=== PATIENT | female | born 1935 | race Caucasian/White ===

== ENCOUNTER 2023-09-19 13:20 | Inpatient (IN) | payer MEDICARE, MEDICAID ==
[~2023-09-19] VITALS: Ht 167.6 cm; Wt 70.3 kg
[2023-09-19 14:21] LABS: AMMONIA 18 uMol/L (<32)
[2023-09-19 14:22] LABS: ACETAMINOPHEN < 2 ug/mL (10-30); ALANINE AMINOTRANSFERASE 11 IU/L (10-49); ASPARTATE AMINOTRANSFERASE 18 IU/L (<34); CALCIUM 8.9 mg/dL (8.7-10.4); CARBON DIOXIDE 29 mEq/L (21-32); CHLORIDE 106 mEq/L (98-107); CREATINE KINASE 35 IU/L (34-145); CREATININE 0.7 mg/dL (0.6-1.0); GLUCOSE 173 mg/dL (70-105); POTASSIUM 4.1 mEq/L (3.5-5.1); PROTEIN TOTAL 6.9 g/dL (6.0-8.3); SODIUM 140 mEq/L (136-145); TROPONIN I HIGH SENSITIVITY 7 ng/L (3.0-34); UREA NITROGEN BLOOD 14 mg/dL (9-23)
[2023-09-19 14:23] LABS: BASOPHILS % 0.7 % (0.0-2.0); DIFFERENTIAL COMMENT 0; EOSINOPHILS % 0.3 % (0.0-5.0); HEMATOCRIT. 27.8 % (36.0-48.0); HEMOGLOBIN. 8.1 g/dL (12.0-16.0); LYMPHOCYTES % 8.8 % (20.0-50.0); MEAN CORPUSCULAR HEMOGLOBIN 21.6 pg (28.0-32.0); MEAN CORPUSCULAR HGB CONC 29.3 g/dL (31.0-37.0); MEAN CORPUSCULAR VOLUME 73.9 fL (81.0-99.0); MEAN PLATELET VOLUME 7.9 fl (7.4-10.4); MONOCYTES % 11.5 % (2.0-8.0); NEUTROPHILS % 78.7 % (40.0-76.0); PLATELET 321 x1000/uL (130-400); RED BLOOD CELL COUNT 3.76 mill/uL (4.2-5.4); RED CELL DISTRIBUTION WIDTH 18.7 % (11.6-14.6); WHITE BLOOD COUNT 7.3 x1000/uL (4.5-11.0)
[2023-09-19 14:30] LABS: ETHANOL BLOOD < 10 mg/dL (<10)
[2023-09-19 14:53] LABS: BG BASE EXCESS 4.5 mmol/L (-2.0-2.0); BG CARBOXYHEMOGLOBIN 0.4 % (0.5-1.5); BG DEOXYHEMOGLOBIN 1.1 % (0.0-5.0); BG FRACTION INSPIRED OXYGEN 40; BG HCO3 ACT 28.6 mmol/L (22.0-26.0); BG METHEMOGLOBIN 0.3 % (0.0-1.5); BG OXYGEN SATURATION 98.9 % (92.0-98.5); BG OXYHEMOGLOBIN 98.2 % (94.0-97.0); BG PCO2 41.1 mmHg (35.0-45.0); BG PH 7.461 (7.350-7.450); BG PO2 144.9 mmHg (75.0-100.0); BG SAMPLE SITE RIGHT RADIAL; BG TOTAL HEMOGLOBIN 9.1 g/dL (12.0-18.0); BG VENT MODE NASAL CANNULA
[2023-09-19] MEDS ORDERED: CEFTRIAXONE 1GM PREMIX 50 ML IV NR (16:15)
[2023-09-19] MEDS ORDERED: AZITHROMYCIN 500MG/250ML 250 ML IV NR (16:30)
[2023-09-19] MEDS ORDERED: ONDANSETRON HCL 4MG/2ML INJ IV PRN (19:45)
[2023-09-19] MEDS ORDERED: DOCUSATE SODIUM 100MG CAPSULE PO PRN (19:45)
[2023-09-19] MEDS ORDERED: GUAIFENESIN 200MG/10ML SUGAR FREE UDC PO PRN (19:45)
[2023-09-19] MEDS ORDERED: ACETAMINOPHEN 325MG TABLET PO PRN ×2 (19:45)
[2023-09-19] MEDS ORDERED: CLONIDINE 0.1MG TABLET PO PRN (19:45)
[2023-09-19] MEDS ORDERED: MAGNESIUM/ALUMINUM HYDROXIDE/SIMETHICONE 30ML UDC PO PRN (19:45)
[2023-09-19] MEDS ORDERED: IPRATROPIUM/ALBUTEROL 0.5-3(2.5)MG/3ML NEB HHN PRN (19:45)
[2023-09-19] MEDS ORDERED: DEXTROSE 50% WATER 50ML SYRINGE IV PRN (20:15)
[2023-09-19 20:22] LABS: IRON 28 ug/dL (50-170); TOTAL IRON BINDING CAPACITY 270 ug/dl (250-425)
[2023-09-19] MEDS: INSULIN LISPRO 100 UNITS/ML SUBCUT SCH (21:00)
[2023-09-19] MEDS: BLOOD SUGAR DIAGNOSTIC STRIP TEST SCH (21:14)
[2023-09-19 21:41] LABS: VITAMIN B12 SERUM > 2000 pg/mL (211-911)
[2023-09-19 22:08] LABS: AMMONIA < 17 uMol/L (<32); CREATINE KINASE 31 IU/L (34-145); TROPONIN I HIGH SENSITIVITY 9 ng/L (3.0-34)
[2023-09-19 22:09] LABS: CREATINE KINASE MB FRACTION < 0.0 ng/mL (0.5-3.6)
[2023-09-19] MEDS ORDERED: IOHEXOL-350 100 ML BOTTLE ONE (23:11)
[2023-09-20] VITALS (13 sets, daily range): BP systolic 125–147; BP diastolic 57–101; PULSE 68–90; RESP 17–26; TEMP 97.3–98.6
[2023-09-20 06:39] LABS: BASOPHILS % 1.1 % (0.0-2.0); DIFFERENTIAL COMMENT 0; EOSINOPHILS % 0.8 % (0.0-5.0); HEMATOCRIT. 30.2 % (36.0-48.0); HEMOGLOBIN. 8.8 g/dL (12.0-16.0); LYMPHOCYTES % 19.8 % (20.0-50.0); MEAN CORPUSCULAR HEMOGLOBIN 21.6 pg (28.0-32.0); MEAN CORPUSCULAR HGB CONC 29.1 g/dL (31.0-37.0); MEAN CORPUSCULAR VOLUME 74.2 fL (81.0-99.0); MEAN PLATELET VOLUME 7.9 fl (7.4-10.4); MONOCYTES % 12.4 % (2.0-8.0); NEUTROPHILS % 65.9 % (40.0-76.0); PLATELET 305 x1000/uL (130-400); RED BLOOD CELL COUNT 4.07 mill/uL (4.2-5.4); RED CELL DISTRIBUTION WIDTH 19.4 % (11.6-14.6); WHITE BLOOD COUNT 6.5 x1000/uL (4.5-11.0)
[2023-09-20 07:27] LABS: CREATINE KINASE 33 IU/L (34-145); CREATINE KINASE MB FRACTION < 0.5 ng/mL (0.5-3.6); TROPONIN I HIGH SENSITIVITY 10 ng/L (3.0-34)
[2023-09-20 07:29] LABS: ALANINE AMINOTRANSFERASE 10 IU/L (10-49); ASPARTATE AMINOTRANSFERASE 20 IU/L (<34); BILIRUBIN TOTAL 0.9 mg/dL (0.1-1.0); CALCIUM 9.2 mg/dL (8.7-10.4); CARBON DIOXIDE 30 mEq/L (21-32); CHLORIDE 103 mEq/L (98-107); CHOLESTEROL 95 mg/dL (<200); CREATININE 0.6 mg/dL (0.6-1.0); GLUCOSE 87 mg/dL (70-105); HDL CHOLESTEROL 36 mg/dL (>65); LDL CHOLESTEROL 40 mg/dL (5-100); POTASSIUM 3.9 mEq/L (3.5-5.1); PROTEIN TOTAL 6.9 g/dL (6.0-8.3); SODIUM 143 mEq/L (136-145); T4 FREE 1.13 ng/dL (0.89-1.76); TRIGLYCERIDE 73 mg/dL (0-150); UREA NITROGEN BLOOD 10 mg/dL (9-23)
[2023-09-20] MEDS: BLOOD SUGAR DIAGNOSTIC STRIP TEST SCH ×4 (07:30→20:27)
[2023-09-20] MEDS: INSULIN LISPRO 100 UNITS/ML SUBCUT SCH ×4 (08:00→20:26)
[2023-09-20] MEDS: FAMOTIDINE 20MG/2ML VIAL IV SCH (08:26)
[2023-09-20] MEDS: ASPIRIN 81MG TABLET PO SCH (12:30)
[2023-09-20] MEDS: CLOPIDOGREL 75MG TABLET PO SCH (12:30)
[2023-09-20] MEDS ORDERED: CEFTRIAXONE 1GM PREMIX 50 ML IV SCH (16:00)
[2023-09-20] MEDS ORDERED: AZITHROMYCIN 500MG/250ML 250 ML IV SCH (17:00)
[2023-09-20] MEDS: AZITHROMYCIN 500MG/250ML 250 ML IV SCH (17:00)
[2023-09-20] MEDS: ATORVASTATIN CALCIUM 40MG TABLET PO SCH (20:38)
[2023-09-21] VITALS (12 sets, daily range): BP systolic 132–160; BP diastolic 73–93; PULSE 81–112; RESP 18–26; TEMP 97.3–98.4
[2023-09-21 06:20] LABS: HEMATOCRIT 29.4 % (36.0-48.0); HEMOGLOBIN 8.7 g/dL (12.0-16.0); MEAN CORPUSCULAR HEMOGLOBIN 21.9 pg (28.0-32.0); MEAN CORPUSCULAR HGB CONC 29.6 g/dL (31.0-37.0); PLATELET 290 x1000/uL (130-400); RED BLOOD CELL COUNT 3.98 mill/uL (4.2-5.4); RED CELL DISTRIBUTION WIDTH 20.2 % (11.6-14.6); WHITE BLOOD COUNT 5.5 x1000/uL (4.5-11.0)
[2023-09-21 06:31] LABS: CALCIUM 9.1 mg/dL (8.7-10.4); CARBON DIOXIDE 32 mEq/L (21-32); CHLORIDE 101 mEq/L (98-107); CREATININE 0.6 mg/dL (0.6-1.0); GLUCOSE 94 mg/dL (70-105); PHOSPHORUS 4.3 mg/dL (2.5-4.9); POTASSIUM 3.6 mEq/L (3.5-5.1); SODIUM 139 mEq/L (136-145); UREA NITROGEN BLOOD 11 mg/dL (9-23)
[2023-09-21] MEDS: BLOOD SUGAR DIAGNOSTIC STRIP TEST SCH ×4 (07:30→21:00)
[2023-09-21] MEDS: INSULIN LISPRO 100 UNITS/ML SUBCUT SCH ×4 (08:00→21:49)
[2023-09-21] MEDS: CLOPIDOGREL 75MG TABLET PO SCH (08:32)
[2023-09-21] MEDS: FAMOTIDINE 20MG/2ML VIAL IV SCH (08:32)
[2023-09-21] MEDS: ASPIRIN 81MG TABLET PO SCH (08:32)
[2023-09-21] MEDS ORDERED: LORAZEPAM 2MG/ML INJ IV NR (13:00)
[2023-09-21] MEDS: CEFTRIAXONE 1GM PREMIX 50 ML IV SCH (15:20)
[2023-09-21] MEDS: AZITHROMYCIN 500MG/250ML 250 ML IV SCH (17:41)
[2023-09-21] MEDS ORDERED: AZIT500T8 MT (18:12)
[2023-09-21] MEDS ORDERED: ASPI-1160 PO (18:12)
[2023-09-21] MEDS ORDERED: CEFT2FRO5 IV (18:12)
[2023-09-21] MEDS ORDERED: CLOP-31 PO (18:12)
[2023-09-21] MEDS ORDERED: LIP40 PO (18:12)
[2023-09-21] MEDS: ATORVASTATIN CALCIUM 40MG TABLET PO SCH (21:24)
[2023-09-22] VITALS (10 sets, daily range): BP systolic 101–166; BP diastolic 58–143; PULSE 93–114; RESP 16–28; TEMP 98.6–98.7
[2023-09-22] MEDS: BLOOD SUGAR DIAGNOSTIC STRIP TEST SCH ×4 (07:30→21:00)
[2023-09-22] MEDS: INSULIN LISPRO 100 UNITS/ML SUBCUT SCH ×4 (08:00→21:00)
[2023-09-22 08:17] LABS: CALCIUM 8.8 mg/dL (8.7-10.4); CARBON DIOXIDE 30 mEq/L (21-32); CHLORIDE 106 mEq/L (98-107); CREATININE 0.6 mg/dL (0.6-1.0); GLUCOSE 114 mg/dL (70-105); POTASSIUM 3.7 mEq/L (3.5-5.1); SODIUM 142 mEq/L (136-145); UREA NITROGEN BLOOD 8 mg/dL (9-23)
[2023-09-22 08:30] LABS: HEMATOCRIT 30.3 % (36.0-48.0); HEMOGLOBIN 8.9 g/dL (12.0-16.0); MEAN CORPUSCULAR HEMOGLOBIN 22.1 pg (28.0-32.0); MEAN CORPUSCULAR HGB CONC 29.4 g/dL (31.0-37.0); PLATELET 280 x1000/uL (130-400); RED BLOOD CELL COUNT 4.04 mill/uL (4.2-5.4); RED CELL DISTRIBUTION WIDTH 23.3 % (11.6-14.6); WHITE BLOOD COUNT 6.4 x1000/uL (4.5-11.0)
[2023-09-22] MEDS: ASPIRIN 81MG TABLET PO SCH (09:28)
[2023-09-22] MEDS: CLOPIDOGREL 75MG TABLET PO SCH (09:28)
[2023-09-22] MEDS: FAMOTIDINE 20MG/2ML VIAL IV SCH (09:57)
[2023-09-22] MEDS: CEFTRIAXONE 1GM PREMIX 50 ML IV SCH (16:01)
[2023-09-22] MEDS: AZITHROMYCIN 500MG/250ML 250 ML IV SCH (16:56)
[2023-09-22] MEDS: ATORVASTATIN CALCIUM 40MG TABLET PO SCH (20:53)
[2023-09-22] MEDS: DILTIAZEM HCL 30MG TABLET PO SCH (22:58)
[2023-09-23] VITALS (12 sets, daily range): BP systolic 116–164; BP diastolic 64–96; PULSE 66–112; RESP 20–27; TEMP 97.1–98.7
[2023-09-23] MEDS: DILTIAZEM HCL 30MG TABLET PO SCH (06:05)
[2023-09-23] MEDS: BLOOD SUGAR DIAGNOSTIC STRIP TEST SCH ×4 (07:30→21:00)
[2023-09-23 07:31] LABS: HEMATOCRIT 29.4 % (36.0-48.0); HEMOGLOBIN 8.8 g/dL (12.0-16.0); MEAN CORPUSCULAR HEMOGLOBIN 22.5 pg (28.0-32.0); MEAN CORPUSCULAR HGB CONC 29.9 g/dL (31.0-37.0); MEAN CORPUSCULAR VOLUME 75.3 fL (81.0-99.0); PLATELET 277 x1000/uL (130-400); RED CELL DISTRIBUTION WIDTH 25.1 % (11.6-14.6)
[2023-09-23 07:57] LABS: CARBON DIOXIDE 33 mEq/L (21-32); CHLORIDE 103 mEq/L (98-107); CREATININE 0.6 mg/dL (0.6-1.0); GLUCOSE 128 mg/dL (70-105); POTASSIUM 3.9 mEq/L (3.5-5.1); SODIUM 142 mEq/L (136-145); UREA NITROGEN BLOOD 7 mg/dL (9-23)
[2023-09-23] MEDS: INSULIN LISPRO 100 UNITS/ML SUBCUT SCH ×4 (08:00→21:00)
[2023-09-23] MEDS: ASPIRIN 81MG TABLET PO SCH (08:48)
[2023-09-23] MEDS: CLOPIDOGREL 75MG TABLET PO SCH (08:48)
[2023-09-23] MEDS: FAMOTIDINE 20MG/2ML VIAL IV SCH (08:48)
[2023-09-23] MEDS: ENOXAPARIN 40MG/0.4ML SYR SUBCUT SCH (11:07)
[2023-09-23 13:06] LABS: FOLATE HEMATOCRIT 32.8 % (34.0-46.6)
[2023-09-23] MEDS: FERROUS SULFATE 325MG TABLET PO SCH ×2 (14:06→18:07)
[2023-09-23] MEDS: DILTIAZEM HCL 60MG TABLET PO SCH ×2 (14:06→22:05)
[2023-09-23] MEDS: CEFTRIAXONE 1GM PREMIX 50 ML IV SCH (16:12)
[2023-09-23] MEDS: AZITHROMYCIN 500MG/250ML 250 ML IV SCH (17:25)
[2023-09-23] MEDS: ATORVASTATIN CALCIUM 40MG TABLET PO SCH (22:04)
[2023-09-24] VITALS (15 sets, daily range): BP systolic 117–151; BP diastolic 59–99; PULSE 71–99; RESP 15–26; TEMP 97.1–97.5
[2023-09-24 05:53] LABS: HEMATOCRIT 32.7 % (36.0-48.0); HEMOGLOBIN 9.4 g/dL (12.0-16.0); MEAN CORPUSCULAR HEMOGLOBIN 22.2 pg (28.0-32.0); MEAN CORPUSCULAR HGB CONC 28.7 g/dL (31.0-37.0); MEAN CORPUSCULAR VOLUME 77.2 fL (81.0-99.0); PLATELET 279 x1000/uL (130-400); RED BLOOD CELL COUNT 4.24 mill/uL (4.2-5.4); RED CELL DISTRIBUTION WIDTH 24.8 % (11.6-14.6); WHITE BLOOD COUNT 5.5 x1000/uL (4.5-11.0)
[2023-09-24] MEDS: DILTIAZEM HCL 60MG TABLET PO SCH ×3 (06:01→21:53)
[2023-09-24 06:54] LABS: CALCIUM 9.2 mg/dL (8.7-10.4); CARBON DIOXIDE 32 mEq/L (21-32); CHLORIDE 104 mEq/L (98-107); CREATININE 0.6 mg/dL (0.6-1.0); GLUCOSE 106 mg/dL (70-105); POTASSIUM 3.9 mEq/L (3.5-5.1); SODIUM 143 mEq/L (136-145); UREA NITROGEN BLOOD 6 mg/dL (9-23)
[2023-09-24] MEDS: BLOOD SUGAR DIAGNOSTIC STRIP TEST SCH ×4 (07:30→21:00)
[2023-09-24] MEDS: INSULIN LISPRO 100 UNITS/ML SUBCUT SCH ×4 (08:00→21:00)
[2023-09-24] MEDS: ENOXAPARIN 40MG/0.4ML SYR SUBCUT SCH (09:38)
[2023-09-24] MEDS: ASPIRIN 81MG TABLET PO SCH (09:38)
[2023-09-24] MEDS: CLOPIDOGREL 75MG TABLET PO SCH (09:39)
[2023-09-24] MEDS: FAMOTIDINE 20MG/2ML VIAL IV SCH (09:39)
[2023-09-24] MEDS: FERROUS SULFATE 325MG TABLET PO SCH ×3 (09:39→17:41)
[2023-09-24] MEDS: AZITHROMYCIN 500MG/250ML 250 ML IV SCH (17:42)
[2023-09-24] MEDS: CEFTRIAXONE 1GM PREMIX 50 ML IV SCH (17:42)
[2023-09-24] MEDS: ATORVASTATIN CALCIUM 40MG TABLET PO SCH (21:52)
[2023-09-25] VITALS (11 sets, daily range): BP systolic 105–136; BP diastolic 42–83; PULSE 67–99; RESP 14–27; TEMP 97–98.5; O2SAT 99
[2023-09-25] MEDS: DILTIAZEM HCL 60MG TABLET PO SCH ×3 (04:55→22:00)
[2023-09-25] MEDS: INSULIN LISPRO 100 UNITS/ML SUBCUT SCH ×4 (08:00→21:00)
[2023-09-25] MEDS: BLOOD SUGAR DIAGNOSTIC STRIP TEST SCH ×4 (08:15→21:00)
[2023-09-25] MEDS: FAMOTIDINE 20MG/2ML VIAL IV SCH (08:17)
[2023-09-25] MEDS: FERROUS SULFATE 325MG TABLET PO SCH ×3 (08:17→17:16)
[2023-09-25] MEDS: CLOPIDOGREL 75MG TABLET PO SCH (08:17)
[2023-09-25] MEDS: ASPIRIN 81MG TABLET PO SCH (08:17)
[2023-09-25 09:40] LABS: HEMATOCRIT 30.5 % (36.0-48.0); MEAN CORPUSCULAR HGB CONC 29.4 g/dL (31.0-37.0); MEAN CORPUSCULAR VOLUME 75.1 fL (81.0-99.0); PLATELET 276 x1000/uL (130-400); RED BLOOD CELL COUNT 4.06 mill/uL (4.2-5.4); RED CELL DISTRIBUTION WIDTH 24.9 % (11.6-14.6); WHITE BLOOD COUNT 5.2 x1000/uL (4.5-11.0)
[2023-09-25 10:10] LABS: CARBON DIOXIDE 34 mEq/L (21-32); CHLORIDE 104 mEq/L (98-107); CREATININE 0.6 mg/dL (0.6-1.0); GLUCOSE 131 mg/dL (70-105); POTASSIUM 3.7 mEq/L (3.5-5.1); SODIUM 142 mEq/L (136-145); UREA NITROGEN BLOOD 8 mg/dL (9-23)
[2023-09-25] MEDS: RIVAROXABAN 10 MG TABLET PO SCH (17:15)
[2023-09-25] MEDS: ATORVASTATIN CALCIUM 40MG TABLET PO SCH (21:00)
[2023-09-26] VITALS (17 sets, daily range): BP systolic 103–154; BP diastolic 49–127; PULSE 66–81; RESP 12–26; TEMP 97–97.9
[2023-09-26] MEDS: DILTIAZEM HCL 60MG TABLET PO SCH ×3 (06:00→21:04)
[2023-09-26] MEDS: INSULIN LISPRO 100 UNITS/ML SUBCUT SCH ×5 (07:30→21:00)
[2023-09-26] MEDS: BLOOD SUGAR DIAGNOSTIC STRIP TEST SCH ×4 (07:30→21:35)
[2023-09-26] MEDS: ASPIRIN 81MG TABLET PO SCH (08:14)
[2023-09-26] MEDS: FERROUS SULFATE 325MG TABLET PO SCH ×3 (08:14→17:46)
[2023-09-26] MEDS: FAMOTIDINE 20MG/2ML VIAL IV SCH (08:14)
[2023-09-26 08:35] LABS: HEMATOCRIT 29.7 % (36.0-48.0); HEMOGLOBIN 8.8 g/dL (12.0-16.0); MEAN CORPUSCULAR HEMOGLOBIN 22.3 pg (28.0-32.0); MEAN CORPUSCULAR HGB CONC 29.5 g/dL (31.0-37.0); MEAN CORPUSCULAR VOLUME 75.6 fL (81.0-99.0); PLATELET 284 x1000/uL (130-400); RED BLOOD CELL COUNT 3.93 mill/uL (4.2-5.4); RED CELL DISTRIBUTION WIDTH 25.7 % (11.6-14.6)
[2023-09-26 09:03] LABS: CALCIUM 8.8 mg/dL (8.7-10.4); CARBON DIOXIDE 33 mEq/L (21-32); CHLORIDE 106 mEq/L (98-107); CREATININE 0.6 mg/dL (0.6-1.0); GLUCOSE 110 mg/dL (70-105); POTASSIUM 3.6 mEq/L (3.5-5.1); SODIUM 143 mEq/L (136-145); UREA NITROGEN BLOOD 9 mg/dL (9-23)
[2023-09-26 13:11] LABS: FOLATE RBC 1601 ng/mL (>498)
[2023-09-26] MEDS: RIVAROXABAN 10 MG TABLET PO SCH (17:46)
[2023-09-26] MEDS: ATORVASTATIN CALCIUM 40MG TABLET PO SCH (21:03)
[2023-09-27] VITALS: BP 148/60; PULSE 64; RESP 20; TEMP 97.9
[2023-09-27 04:00] VITALS: BP 155/57; PULSE 72; RESP 18; TEMP 97.8
[2023-09-27] MEDS: DILTIAZEM HCL 60MG TABLET PO SCH ×3 (05:41→21:36)
[2023-09-27 06:26] LABS: HEMATOCRIT 29.5 % (36.0-48.0); HEMOGLOBIN 8.6 g/dL (12.0-16.0); MEAN CORPUSCULAR HEMOGLOBIN 22.7 pg (28.0-32.0); MEAN CORPUSCULAR HGB CONC 29.3 g/dL (31.0-37.0); MEAN CORPUSCULAR VOLUME 77.6 fL (81.0-99.0); PLATELET 301 x1000/uL (130-400); RED CELL DISTRIBUTION WIDTH 26.5 % (11.6-14.6); WHITE BLOOD COUNT 5.1 x1000/uL (4.5-11.0)
[2023-09-27 06:27] LABS: CALCIUM 8.6 mg/dL (8.7-10.4); CARBON DIOXIDE 33 mEq/L (21-32); CHLORIDE 108 mEq/L (98-107); CREATININE 0.6 mg/dL (0.6-1.0); GLUCOSE 110 mg/dL (70-105); PHOSPHORUS 3.8 mg/dL (2.5-4.9); POTASSIUM 3.6 mEq/L (3.5-5.1); SODIUM 144 mEq/L (136-145); UREA NITROGEN BLOOD 10 mg/dL (9-23)
[2023-09-27 08:00] VITALS: BP 143/51; PULSE 77; RESP 20; TEMP 97.9
[2023-09-27] MEDS: INSULIN LISPRO 100 UNITS/ML SUBCUT SCH ×4 (08:10→21:34)
[2023-09-27] MEDS: BLOOD SUGAR DIAGNOSTIC STRIP TEST SCH ×4 (08:22→21:29)
[2023-09-27] MEDS: ASPIRIN 81MG TABLET PO SCH (10:15)
[2023-09-27] MEDS: FAMOTIDINE 20MG/2ML VIAL IV SCH (10:15)
[2023-09-27] MEDS: FERROUS SULFATE 325MG TABLET PO SCH ×3 (10:15→18:19)
[2023-09-27 11:45] VITALS: BP 122/62; PULSE 69; RESP 20; TEMP 96.6
[2023-09-27 16:00] VITALS: BP 163/70; PULSE 77; RESP 18; TEMP 97.7
[2023-09-27] MEDS: RIVAROXABAN 10 MG TABLET PO SCH (18:19)
[2023-09-27 20:00] VITALS: BP 136/84; PULSE 58; RESP 20; TEMP 97.2
[2023-09-27] MEDS: ATORVASTATIN CALCIUM 40MG TABLET PO SCH (21:29)
[2023-09-28] VITALS (7 sets, daily range): BP systolic 138–149; BP diastolic 47–71; PULSE 64–84; RESP 16–22; TEMP 96.6–98.7; O2SAT 96
[2023-09-28] MEDS: DILTIAZEM HCL 60MG TABLET PO SCH ×3 (05:10→22:06)
[2023-09-28] MEDS: INSULIN LISPRO 100 UNITS/ML SUBCUT SCH ×4 (06:23→21:00)
[2023-09-28] MEDS: BLOOD SUGAR DIAGNOSTIC STRIP TEST SCH ×4 (06:23→21:00)
[2023-09-28 07:27] LABS: CARBON DIOXIDE 32 mEq/L (21-32); CHLORIDE 105 mEq/L (98-107); CREATININE 0.6 mg/dL (0.6-1.0); GLUCOSE 134 mg/dL (70-105); PHOSPHORUS 2.9 mg/dL (2.5-4.9); POTASSIUM 3.4 mEq/L (3.5-5.1); SODIUM 143 mEq/L (136-145); UREA NITROGEN BLOOD 8 mg/dL (9-23)
[2023-09-28 07:39] LABS: HEMOGLOBIN 9.6 g/dL (12.0-16.0); MEAN CORPUSCULAR HGB CONC 29.9 g/dL (31.0-37.0); MEAN CORPUSCULAR VOLUME 77.1 fL (81.0-99.0); PLATELET 329 x1000/uL (130-400); RED BLOOD CELL COUNT 4.15 mill/uL (4.2-5.4); RED CELL DISTRIBUTION WIDTH 26.2 % (11.6-14.6); WHITE BLOOD COUNT 5.5 x1000/uL (4.5-11.0)
[2023-09-28] MEDS ORDERED: POTASSIUM CHLORIDE 20MEQ TABLET SR PO NR (08:15)
[2023-09-28] MEDS ORDERED: FAMOTIDINE 20MG TABLET PO SCH (09:00)
[2023-09-28] MEDS: ASPIRIN 81MG TABLET PO SCH (09:45)
[2023-09-28] MEDS: FERROUS SULFATE 325MG TABLET PO SCH ×3 (09:46→17:46)
[2023-09-28] MEDS ORDERED: FERR-63 PO (16:16)
[2023-09-28] MEDS ORDERED: DILT60TA35 PO (16:16)
[2023-09-28] MEDS ORDERED: FAMO20TA8 PO (16:16)
[2023-09-28] MEDS: ATORVASTATIN CALCIUM 40MG TABLET PO SCH (22:05)
[2023-10-03] MEDS ORDERED: POTA-202 PO (19:04)
[2023-10-03] MEDS ORDERED: DOCU-150 PO (19:09)
[2023-10-03] MEDS ORDERED: ASPI-1406 PO (19:09)
[2023-10-03] MEDS ORDERED: FURO40TA5 PO (19:09)
[2023-10-03] MEDS ORDERED: ISOS30TA91 PO (19:09)
[2023-10-03] MEDS ORDERED: AMLO5TAB88 PO (19:09)
[2023-10-03] MEDS ORDERED: MULT-1318 PO (19:09)
[2023-10-03] MEDS ORDERED: METO-539 PO (19:09)
[2023-10-03] MEDS ORDERED: RIVA10TA PO (19:09)
[2023-10-03] MEDS ORDERED: ATOR10TA69 PO (19:09)
[2023-10-03] MEDS ORDERED: VENL-179 (19:09)
[2023-10-03] MEDS ORDERED: IRBE75TA9 PO (19:09)
[2023-10-03] MEDS ORDERED: HYDR-4134 PO (19:09)
[2023-10-03] MEDS ORDERED: METF-414 PO (19:09)
== END 2023-09-28 23:03 | DRG 871 ==
LOC: ER 13:20 → EDBEDREQ 13:59 → EDBD 16:28 → 5EST 16:28 → EDBEDREQTM 16:33 → EDBEDREQ 16:33 → 7WST 09-26 12:10
PROVIDERS: ADMIT Internal Medicine; ATTEND Internal Medicine
DX: A41.9 Sepsis, unspecified organism (principal); G82.50 Quadriplegia, unspecified; G92.8 Other toxic encephalopathy; J69.0 Pneumonitis due to inhalation of food and vomit; I63.9 Cerebral infarction, unspecified; I61.9 Nontraumatic intracerebral hemorrhage, unspecified; R47.01 Aphasia; J98.11 Atelectasis; E11.9 Type 2 diabetes mellitus without complications; D50.9 Iron deficiency anemia, unspecified; I11.0 Hypertensive heart disease with heart failure; I48.91 Unspecified atrial fibrillation; R47.1 Dysarthria and anarthria; I50.9 Heart failure, unspecified; I71.9 Aortic aneurysm of unspecified site, without rupture; R13.10 Dysphagia, unspecified; Z79.01 Long term (current) use of anticoagulants; Z79.02 Long term (current) use of antithrombotics/antiplatelets; Z79.4 Long term (current) use of insulin; Z79.82 Long term (current) use of aspirin; Z79.899 Other long term (current) drug therapy; Z87.11 Personal history of peptic ulcer disease; Z93.3 Colostomy status; Z87.01 Personal history of pneumonia (recurrent); Z82.49 Family history of ischemic heart disease and other diseases of the circulatory system
CPT/HCPCS: 36415; 36600; 70496; 70498; 70544; 70551; 70553; 71045; 80048; 80053; 80061; 80307; 80320; 80329; 82140; 82375; 82550; 82553; 82607; 82747; 82805; 82962; 83036; 83540; 83550; 83605; 83735; 83880; 84100; 84145; 84439; 84443; 84484; 85014; 85025; 85027; 92523; 92610; 93005; 93306; 93970; 97110; 97116; 97162; 97166; 97530; 97535; 99291; A6261; J0456; J0696; J1650; J1815; J2060; J3490; Q9967; G0480